=== PATIENT | female | born 1950 | race Caucasian/White ===

== ENCOUNTER 2023-12-15 09:13 | Outpatient (CLI) | payer MEDICARE, OTHER, SELFPAY | END 2023-12-15 09:14 | disposition home or self-care (01) | LOC: ANHAUDIO 09:13 | PROVIDERS: PCP Family Medicine; Visit Provider Otolaryngology | DX: H90.3 Sensorineural hearing loss, bilateral (principal) | CPT/HCPCS: 92557; 92567 ==

== ENCOUNTER 2024-03-10 11:00 | Outpatient (RCR) | payer SELFPAY | END 2024-03-10 23:59 | disposition home or self-care (01) | LOC: ANHAUDIO 11:00 | PROVIDERS: PCP Family Medicine; Visit Provider Family Medicine | DX: Z46.1 Encounter for fitting and adjustment of hearing aid (principal) | CPT/HCPCS: 99199; V5261 ==